=== PATIENT | female | born 1980 | race Caucasian/White ===

== ENCOUNTER 2016-10-09 13:31 | Outpatient (CLI) | payer BC | END 2016-10-09 19:37 | disposition home or self-care (01) | LOC: SRD 13:31 | PROVIDERS: ATTEND Family Medicine | DX: N60.11 Diffuse cystic mastopathy of right breast (principal); M25.562 Pain in left knee | CPT/HCPCS: 73564; 76642 ==

== ENCOUNTER 2022-09-11 20:48 | Emergency (ER) | payer BC, OTHER ==
[~2022-09-11] VITALS: Ht 152.4 cm; Wt 65.8 kg
[2022-09-11 20:57] VITALS: BP_SYST 145
--- NOTE | 2022-09-11 21:03 | NUR ---
Patient triaged and placed in waiting room. VSS and patient appears in no acute distress at this time. , awaiting available bed, and MD notified of need for MSE.
--- NOTE | 2022-09-11 22:15 | NUR ---
Placed in room 06 . Placed on archery instructor, blood pressure machine and pulse oximeter. To gown for exam. Side rails up. Report given to LASHELL ALVAREZ.
--- NOTE | 2022-09-11 22:23 | NUR ---
ER Dr. White at bedside examining patient.
--- NOTE | 2022-09-11 22:23 | NUR ---
Pt bib self from urgent care, ambulated to bed 6. Pt A&Ox4, able to make needs known. Pt c/o left sided headache x6 days. Pt rates pain 9/10. Pt describes pain as sharp and throbbing. Pt states she last took 500mg Motrin at 1000. Pt denies N/V/D, fever and chills, and SOB and chest pain. Pt states family history of brain aneurysm. Safety measures in place.
[2022-09-11] MEDS ORDERED: DIPHENHYDRAMINE INJ 50 MG/ML VIAL IVP ONE (22:30)
[2022-09-11] MEDS ORDERED: PROCHLORPERAZINE EDISYLATE 10 MG/2 ML VIAL IVP ONE (22:30)
[2022-09-11] MEDS ORDERED: NACL 0.9% 1,000 ML IV ONE (22:30)
[2022-09-11 22:54] LABS: BASOPHILS # (AUTO) 0.1 K/uL (0.0-0.2); BASOPHILS % (AUTO) 0.7 % (0.0-2.0); EOSINOPHILS # (AUTO) 0.1 K/uL (0.0-0.4); EOSINOPHILS % (AUTO) 1.2 % (0.0-4.0); HEMATOCRIT 38.9 % (36-48); LYMPHOCYTES # (AUTO) 2.6 K/uL (1.0-5.5); LYMPHOCYTES % (AUTO) 34.1 % (20.5-51.5); MEAN CORPUSCULAR HEMOGLOBIN 30 pg (27-31); MEAN CORPUSCULAR HGB CONC 33 % (32-36); MEAN CORPUSCULAR VOLUME 89 fL (79.0-98.0); MONOCYTES # (AUTO) 0.5 K/uL (0.0-1.0); MONOCYTES % (AUTO) 6.9 % (1.7-9.3); NEUTROPHILS # (AUTO) 4.4 K/uL (1.8-7.7); NEUTROPHILS % (AUTO) 57.1 % (40.0-70.0); PLATELET COUNT (AUTO) 206 K/uL (130-430); RED BLOOD CELL COUNT(AUTO) 4.38 MIL/uL (4.2-6.2); RED CELL DISTRIBUTION WIDTH 13.4 % (9.0-15.0); WHITE BLOOD COUNT (AUTO) 7.7 K/uL (4.8-10.8)
[2022-09-11 23:09] LABS: CALCIUM 8.8 mg/dL (8.4-11.0); CREATININE 0.6 mg/dL (0.55-1.30)
[2022-09-12] MEDS ORDERED: DIPHENHYDRAMINE INJ 50 MG/ML VIAL IVP ONE (01:00)
[2022-09-12 01:38] VITALS: BP_SYST 124
--- NOTE | 2022-09-12 01:46 | NUR ---
Patient given written and verbal discharge instructions and verbalizes understanding. ER Dr White discussed with patient the results and treatment provided. Patient in stable condition. ID arm band removed. IV catheter removed intact and dressing applied, no active bleeding. Patient educated on pain management and to follow up with PMD. Opportunity for questions provided and answered. Medication side effect fact sheet provided.
== END 2022-09-12 01:38 | disposition home or self-care (01) ==
LOC: SED 20:48
DX: R51.9 Headache, unspecified (principal); Z79.899 Other long term (current) drug therapy
CPT/HCPCS: 99285; 70450; 96361; 80053; 85025; 36415; 76376; 81025; 96374; 96375; 96376; J1200 ×2; J0780; J7030